=== PATIENT | male | born 1975 | race Caucasian/White ===

== ENCOUNTER 2021-12-17 15:27 | Inpatient (IN) | payer SELFPAY ==
--- NOTE | 2021-12-17 15:38 | CTR_ITS ---
PROCEDURE INFORMATION: Exam: CT Cervical Spine Without Contrast Exam date and time: 12/17/2021 4:56 PM Age: 46 years old Clinical indication: Injury or trauma; Fall; Blunt trauma; Injury details: ETOH TECHNIQUE: Imaging protocol: Computed tomography of the cervical spine without contrast. Radiation optimization: All CT scans at this facility use at least one of these dose optimization techniques: automated exposure control; mA and/or kV adjustment per patient size (includes targeted exams where dose is matched to clinical indication); or iterative reconstruction. COMPARISON: No relevant prior studies available. RADIATION DOSE METRICS: Total DLP (mGy-cm): 269.4 FINDINGS: Bones/joints: No acute fracture. Normal alignment. C2-C3: No significant disc protrusion. No severe spinal canal stenosis. No significant neural foraminal narrowing. C3-C4: No significant disc protrusion. No severe spinal canal stenosis. No significant neural foraminal narrowing. C4-C5: No significant disc protrusion. No severe spinal canal stenosis. No significant neural foraminal narrowing. C5-C6: No significant disc protrusion. No severe spinal canal stenosis. No significant neural foraminal narrowing. C6-C7: No significant disc protrusion. No severe spinal canal stenosis. No significant neural foraminal narrowing. C7-T1: No significant disc protrusion. No severe spinal canal stenosis. No significant neural foraminal narrowing. Lungs: Lung apices are normal. Soft tissues: Unremarkable. CT/CT cervical spin wo con* [id number] IMPRESSION: No acute findings.
--- NOTE | 2021-12-17 15:38 | CTR_ITS ---
PROCEDURE INFORMATION: Exam: CT Head Without Contrast Exam date and time: 12/17/2021 4:56 PM Age: 46 years old Clinical indication: Altered mental status/memory loss; Patient HX: ETOH TECHNIQUE: Imaging protocol: Computed tomography of the head without contrast. Radiation optimization: All CT scans at this facility use at least one of these dose optimization techniques: automated exposure control; mA and/or kV adjustment per patient size (includes targeted exams where dose is matched to clinical indication); or iterative reconstruction. COMPARISON: No relevant prior studies available. RADIATION DOSE METRICS: Total DLP (mGy-cm): 1232.51 FINDINGS: Brain: Normal. No hemorrhage. Unremarkable white matter. No mass effect. Cerebral ventricles: No ventriculomegaly. Paranasal sinuses: Visualized sinuses are unremarkable. No fluid levels. Mastoid air cells: Visualized mastoid air cells are well aerated. Bones/joints: Unremarkable. No acute fracture. Soft tissues: Unremarkable. CT/CT head wo con* [id number] IMPRESSION: No acute intracranial abnormality.
--- NOTE | 2021-12-17 15:43 | W.ED.ALCOHOL ---
HPI - Alcohol General: Chief Complaint: Alcohol Stated Complaint: ETOH Time Seen by Provider: 12/17/21 15:33 History of Present Illness: 46-year-old male who is brought in by EMS for altered mental status. The patient has a history of methamphetamine use as well as alcohol abuse. His woke up at 130 and found him intoxicated. He proceeded to ingest a large amount more of alcohol and then subsequently called into a knuckle strap sewer that was being dog. The patient is intoxicated and unable to provide any further history. He did vomit in the EMS unit in route. Further history from the patient's and daughter, the patient reportedly did state that he wanted to . He asked his to help kill him. He threw himself into a septic tank that there digging face first and attempt to harm himself while he was intoxicated. He does not normally drink heavily. He does have a longstanding history of methamphetamine and marijuana use but has been sober. Review of Systems Narrative: Unable to obtain review of systems due to altered mental status Physical Exam Narrative: EXAM NARRATIVE: Patient is confused and agitated, uncooperative. Abrasions on his abdomen Const: OTHER: Confused, uncooperative with exam HENMT: COMMON NORMALS: normocephalic, atraumatic and external ears normal HEAD & SCALP: normal to inspection, normocephalic and atraumatic EXTERNAL EAR: Yes external ears normal Eye: COMMON NORMALS: Equal, round and reactive pupils present and EOMs intact bilaterally PUPIL: Yes Equal, round and reactive pupils present Neck/C-Spine: COMMON NORMALS: full ROM (No cervical spine tenderness, trachea midline) Chest: OTHER: Abrasions on the lower anterior chest Resp: OTHER: Equal present bilaterally Cardio: COMMON NORMALS: regular rate and regular rhythm RATE: regular rate RHYTHM: regular rhythm GI: OTHER: Abrasions on the abdomen, no ecchymosis, abdomen nontender Back/Pelvis: OTHER: No cervical spine tenderness, no step-offs Extremity: NARRATIVE EXTREMITY EXAM: Moves all extremities symmetrically, no obvious trauma or deformity. Neuro: OTHER: Patient is confused, does follow commands, slurred speech, no obvious facial droop, pupils are equal Psych: OTHER: Patient is agitated and uncooperative, obviously intoxicated Skin: OTHER: Abrasions on the chest and abdomen Course ED course: Patient has been evaluated in the emergency department. Originally he was very agitated and uncooperative. He had an IV placed and had labs obtained. He was given Haldol 5 mg and Ativan 2 mg IV. He has slept comfortably. His initial blood alcohol was 271. He did have a CPK of 377 which is not unexpected as he has been building the septic tank at home for the past 5 days. His other laboratory studies are unremarkable. Drug screen is negative. Discussed with the family who are concerned because he voiced suicidal ideations at home, they are requesting admission if possible. X Reevaluation(s): Reevaluation #1: Repeat blood alcohol is down 191, previously 271. Patient wakes up easily. He denies suicidal ideations. He is oriented x3. Consultations: Consultation #1: Discussed with Dr. Keller, psychiatry who agrees with admission. Vital Signs: Vital signs: Vital Signs Pulse Rate 68 12/17/21 19:30 Respiratory Rate 17 12/17/21 19:30 Blood Pressure 97/76 12/17/21 19:30 Pulse Oximetry 98 12/17/21 19:30 Oxygen Delivery Me thod 12/17/21 19:30 MDM - Alcohol Medical Decision Making Patient's been sleeping after the Haldol and Ativan. CT of his head and cervical spine are unremarkable. He has been observed for about 5 hours. He wakes up and denies suicidal ideations but does admit to making suicidal statements earlier. Repeat blood alcohol is 191. Discussed with neuropsychiatry who agrees with admission. Lab Data : 12/17/21 16:44 12/17/21 16:44 Radiology Impressions Cervical Spine CT 12/17/21 15:38 IMPRESSION: No acute findings. Head CT 12/17/21 15:38 IMPRESSION: No acute intracranial abnormality. Laboratory Results WBC 4.8 10^3/uL (4.0-10.0) 12/17/21 16:44 RBC 4.22 10^6/uL (4.1-5.3) 12/17/21 16:44 Hgb 12.5 g/dL (11.7-16.6) 12/17/21 16:44 Hct 39.4 % (42.0-52.0) L 12/17/21 16:44 MCV 93.4 fl (80-94) 12/17/21 16:44 MCH 29.6 pg (28.0-34.0) 12/17/21 16:44 MCHC 31.7 g/dL (30.0-36.0) 12/17/21 16:44 RDW 13.2 % (12.1-15.1) 12/17/21 16:44 Plt Count 262 10^3/cmm (130-400) 12/17/21 16:44 MPV 9.5 fL (7.4-10.4) 12/17/21 16:44 Neut % (Auto) 63.8 % 12/17/21 16:44 Lymph % (Auto) 31.5 % 12/17/21 16:44 [place] % (Auto) 3.3 % 12/17/21 16:44 Eos % (Auto) 0.8 % 12/17/21 16:44 Baso % (Auto) 0.4 % 12/17/21 16:44 Neut # (Auto) 3.08 10^3/uL (1.8-7.7) 12/17/21 16:44 Lymph # (Auto) 1.5 10^3/uL (0.8-4.8) 12/17/21 16:44 [place] # (Auto) 0.2 10^3/uL (0.2-0.9) 12/17/21 16:44 Eos # (Auto) 0.0 10^3/uL (0.0-0.8) 12/17/21 16:44 Baso # (Auto) 0.0 10^3/uL (0.0-0.1) 12/17/21 16:44 Nucleated RBC % (auto) 0 % 12/17/21 16:44 Nucleated RBCs # 0.0 /100WBC 12/17/21 16:44 Sodium 143 mmol/L (136-145) 12/17/21 16:44 Potassium 3.8 mmol/L (3.5-5.1) 12/17/21 16:44 Chloride 109 mmol/L (98-107) H 12/17/21 16:44 Carbon Dioxide 19 mmol/L (22-29) L 12/17/21 16:44 Anion Gap 18.8 (5-19) 12/17/21 16:44 BUN 13 mg/dL (6-20) 12/17/21 16:44 Creatinine 0.7 mg/dL (0.7-1.2) 12/17/21 16:44 GFR Calculation 121.4 mL/min (90-130) 12/17/21 16:44 Glucose 152 mg/dL (65-115) H 12/17/21 16:44 Calculated Osmolality 299 mOsm/kg (285-295) H 12/17/21 16:44 Calcium 8.2 mg/dL (8.5-10.5) L 12/17/21 16:44 Total Bilirubin 0.3 mg/dL (0.15-1.2) 12/17/21 16:44 AST 27 U/L (0-40) 12/17/21 16:44 ALT 27 U/L (0-41) 12/17/21 16:44 Alkaline Phosphatase 69 U/L (40-130) 12/17/21 16:44 Creatine Kinase 377 U/L (39-308) H* 12/17/21 16:44 Total Protein 6.3 g/dL (6.6-8.7) L 12/17/21 16:44 Albumin 4.0 g/dL (3.5-5.2) 12/17/21 16:44 Globulin 2.3 g/dL (1.3-4.6) 12/17/21 16:44 Urine Color Straw (Yellow) 12/17/21 16:44 Urine Appearance Clear (CLEAR) 12/17/21 16:44 Urine pH 5 (5-7) 12/17/21 16:44 Ur Specific Richardson 1.005 (1.005-1.030) 12/17/21 16:44 Urine Protein Neg (Negative) 12/17/21 16:44 Urine Glucose (UA) Norm (Normal) 12/17/21 16:44 Urine Ketones Negative (Negative) 12/17/21 16:44 Urine Blood Neg (Negative) 12/17/21 16:44 Urine Nitrate Negative (Negative) 12/17/21 16:44 Urine Bilirubin Neg (Negative) 12/17/21 16:44 Urine Urobilinogen Norm mg/dL (Negative) 12/17/21 16:44 Ur Leukocyte Esterase Negative (Negative) 12/17/21 16:44 Salicylates < 0.3 mg/dL (3-10) L 12/17/21 16:44 Urine Opiates Screen Negative ng/mL (Negative) 12/17/21 16:44 Acetaminophen < 5.0 ug/mL (10-30) L 12/17/21 16:44 Ur Barbiturates Screen Negative ng/mL (Negative) 12/17/21 16:44 Ur Phencyclidine Scrn Negative ng/mL (Negative) 12/17/21 16:44 Ur Amphetamines Screen Negative ng/mL (Negative) 12/17/21 16:44 U Benzodiazepines Scrn Negative ng/mL (Negative) 12/17/21 16:44 Urine Cocaine Screen Negative ng/mL (Negative) 12/17/21 16:44 U Marijuana (THC) Screen Negative ng/mL (Negative) 12/17/21 16:44 Ethyl Alcohol 191 mg/dL (0-10) H 12/17/21 20:53 Discharge Plan Discharge Clinical Impression: Alcoholic intoxication, Abdominal wall abrasion, Suicidal ideations Condition: Stable Coding Level of Care Code ED Silverware Washer for Beto Fwxander History Comprehensive Exam Comprehensive Medical Decision Making Moderate Complexity
[2021-12-17 15:52] VITALS: BMI 25.8
--- NOTE | 2021-12-17 16:02 | PC.NURSE ---
Unable to take vitals at this time due to patient inability to sit still.
[2021-12-17] MEDS: haloperidol inj 5 mg/mL INJ 1 mL IVP (16:25)
[2021-12-17] MEDS: ondansetron 2 mg/ML SDV 2 mL 4 MG IVP (16:25)
[2021-12-17] MEDS: LORazepam 2 mg/mL INJ 1 mL IVP (16:25)
[2021-12-17] MEDS: sodium chloride 0.9% 1,000 ML 999 ML IV ×2 (16:26→18:52)
[2021-12-17] MEDS: tetanus-dipt-pertussis 0.5 mL SDV IM (16:27)
--- NOTE | 2021-12-17 16:39 | PC.NURSE ---
PT PLACED ON CONTINUOUS SPO2, NIBP, AND CM.
[2021-12-17 16:41] VITALS: BP 91/63; PULSE 57; RESP 12; O2SAT 92
--- NOTE | 2021-12-17 16:52 | PC.NURSE ---
INTERMITANT CATH PEFORMED PER DR. NINO ORDERS.
[2021-12-17 16:58] LABS: Add Urine Microscopic? NO; Charge for UA Resulting for Rev
[2021-12-17 17:08] LABS: Amphetamines Screen Urine Negative (Negative); Barbiturates Screen Urine Negative (Negative); Benzodiazepines Screen Urine Negative (Negative); Cocaine Screen Urine Negative (Negative); Opiate Screen Urine Negative (Negative); PCP Screen Urine Negative (Negative); THC Screen Urine Negative (Negative)
[2021-12-17 17:09] LABS: Bilirubin Urine Neg (Negative); Blood Urine Neg (Negative); Glucose Urine UA Norm (Normal); Ketones Urine Negative (Negative); Leukocyte Esterase Urine Negative (Negative); Nitrate Urine Negative (Negative); Protein Urine Neg (Negative); Specific Gravity, Urine 1.005 (1.005-1.030); Urine Appearance Clear (CLEAR); Urine Color Straw (Yellow); Urobilinogen Urine Norm (Negative); pH Urine 5 (5-7)
[2021-12-17 17:13] LABS: Basophils % 0.4 %; Eosinophils % 0.8 %; Hematocrit 39.4 % (42.0-52.0); Hemoglobin 12.5 g/dL (11.7-16.6); Lymphocytes # 1.5 10^3/uL (0.8-4.8); Lymphocytes % 31.5 %; Mean Corpuscular HGB Conc 31.7 g/dL (30.0-36.0); Mean Corpuscular Hemoglobin 29.6 pg (28.0-34.0); Mean Corpuscular Volume 93.4 fl (80-94); Mean Platelet Volume 9.5 fL (7.4-10.4); Monocytes # 0.2 10^3/uL (0.2-0.9); Monocytes % 3.3 %; Neutrophils # 3.08 10^3/uL (1.8-7.7); Neutrophils % 63.8 %; Nucleated Red Blood Cells % 0 %; Platelet Count 262 10^3/cmm (130-400); Red Blood Count 4.22 10^6/uL (4.1-5.3); Red Cell Distribution Width 13.2 % (12.1-15.1); White Blood Count 4.8 10^3/uL (4.0-10.0)
[2021-12-17 17:27] LABS: Alanine Aminotransferase 27 U/L (0-41); Alcohol Level 271 mg/dL (0-10); Alkaline Phosphatase 69 U/L (40-130); Anion Gap 18.8 (5-19); Aspartate Amino Transferase 27 U/L (0-40); Blood Urea Nitrogen 13 mg/dL (6-20); Calcium 8.2 mg/dL (8.5-10.5); Carbon Dioxide 19 mmol/L (22-29); Chloride 109 mmol/L (98-107); Globulin 2.3 g/dL (1.3-4.6); Glomerular Filtration Rate 121.4 mL/min (90-130); Glucose 152 mg/dL (65-115); Osmolality Calculated 299 mOsm/kg (285-295); Potassium 3.8 mmol/L (3.5-5.1); Sodium 143 mmol/L (136-145); Total Bilirubin 0.3 mg/dL (0.15-1.2); Total Protein 6.3 g/dL (6.6-8.7)
[2021-12-17 17:31] LABS: Acetaminophen < 5.0 ug/mL (10-30); Salicylate < 0.3 mg/dL (3-10)
[2021-12-17 17:32] LABS: Creatine Phosphokinase 377 U/L (39-308)
[2021-12-17 19:26] VITALS: O2SAT 98
[2021-12-17 19:30] VITALS: BP 97/76; PULSE 68; RESP 17; O2SAT 98
[2021-12-17 21:16] LABS: Alcohol Level 191 mg/dL (0-10)
[2021-12-17 22:16] VITALS: BP 113/77; PULSE 59; RESP 16; TEMP 37.1; O2SAT 96
[2021-12-17 22:29] VITALS: BP 109/74; PULSE 65; RESP 18; TEMP 36.3; O2SAT 100
--- NOTE | 2021-12-17 22:30 | PC.NURSE ---
46 yr.old male admitted to Room 150-1. Arrived via w/c from ED accompanied by ER staff and security. Alert and Ox2. Mood calm. Denies S/I, H/I or AVH. Denied any anxiety or depression. Stated he just had a few too many drinks today. Reports not remembering what he said. called unit and stated her does not drink very often and if so only has a few drinks. Stated he has been sober from Meth since being in rehab 5 yrs ago. States he quit smoking cigarettes and doing any drugs since he found God 5 yrs ago. Also states they just moved from [place], [place] to [place] recently and are setting up a new trailer and he has been working on septic for the past 5 days. Stated when she woke up today around 1:30 she noticed he was drinking fireball shots. Stated he drank 15 fireball shots in a short amount of time. She stated she was joking around about her not getting any sleep and he blew up at her and went outside. states at this point she could here him yelling outside stating Let me ! Stated she has not noticed him being depressed or anxious about anything so his behavior caught her off guard. She stated he had walked over to where the septic tank digging was going on and threw himself in there face first. She then called the ambulance. Patient noted to have abrasions on stomach, arm and hands from incident when doing skin assessment. No contraband found during assessment. Denied pain and stated he was just tired. Cooperative with all care. Unit rules and expectations reviewed and patient voiced understanding. Orientated to unit and room. Patient given snack and milk. Assisted to room.
[2021-12-17 22:32] VITALS: BMI 25.8
[2021-12-18 06:00] VITALS: BP 119/71; PULSE 81; RESP 18; TEMP 36.8; O2SAT 99
--- NOTE | 2021-12-18 08:34 | W.PM.NPUH&PS ---
Providers/Chief Complaint Admitting Physician: Axel Keller MD Chief Complaint: ETOH HPI NPU History of Present Illness Lang Guo is a 46 year old male who presented to the emergency department with the following report: Chief Complaint: Alcohol Stated Complaint: ETOH Time Seen by Provider: 12/17/21 15:33 History of Present Illness: 46-year-old male who is brought in by EMS for altered mental status. The patient has a history of methamphetamine use as well as alcohol abuse. His woke up at 130 and found him intoxicated. He proceeded to ingest a large amount more of alcohol and then subsequently called into a sewer line photo inspector that was being dog. The patient is intoxicated and unable to provide any further history. He did vomit in the EMS unit in route. Further history from the patient's and daughter, the patient reportedly did state that he wanted to . He asked his to help kill him. He threw himself into a septic tank that there digging face first and attempt to harm himself while he was intoxicated. He does not normally drink heavily. He does have a longstanding history of methamphetamine and marijuana use but has been sober. The patient was admitted to the neuropsychiatric unit for definitive treatment of those issues. He is not currently on psychiatric medication. He presents today reporting he had drank 8 to 10 shotsand fell down but could not remember past that. He has never been psychtrically hospitalized, has been to [facility] for outpatient services and has been on psychiatric medications but not for the past 10 to 12 years. He reports he quite cigarettes 5 years ago, reports alcohol occasionally, reports marijuana and methamphetamine in the past but quit 5 years ago and denies any other illicit drug use. He has been to [facility] for rehab after he was released from [facility]. He had a possession charge around 20 years ago. He denies currently experiencing depression or anxiety but was diagnosed with bipolar disorder and post traumatic stress disorder in the past though he had been using methamphetamine at the time. He reports his mental health issues stopped when he went to snf and has been clean since and denies having mental health issues since. He reports he had been drinking the other night and got carried away so before he knew, he was drunk and fell. His had reported to him that he said ?just let me ? during his intoxication. He denies having any issues since he has been out of [facility], bought his house with his and has been working on the house. He reports he had been overworking himself and just got carried away with drinking. Psychiatric History: As above. Substance Abuse History: As above. Family History: He reports some potential mental health issues in his sister but reports she was actively using methamphetamine at the time, addiction issues on both sides of the family, and denies suicide attempts or completions on either side of the family. Developmental History: He denies issues with his or , learned to walk and talk and met his developmental milestones on time and received speech therapy but denies emotional support, learning support or special education classes. Psychosocial History: He reports his parents were together when he was born and remained together. He has 7 siblings who are products of the same union and neither of his parents have any additional children. He described his childhood as good and denies emotional, physical or sexual abuse. The highest grade he achieved was 10th and he got his [employer]. He endorses being heterosexual with his longest relationship being 25 years. He has been once, has a children, has not been in the and endorses being shinto. His longest employment history was 3 years with [employer]. He is not currently employed. He lives in a trailer with his and child. Legal History: He has been to snf 3 times, the longest time of which was a year and a half. Medical History: He denies any known allergies to medications. He got an infection in his muscle from work. He has scrapes from his fall. Meds NPU Home Medications Medication Instructions Recorded Confirmed Last Taken Type No Known Home Medications 12/17/21 12/17/21 Unknown History Allergies Allergy/AdvReac Type Severity Reaction Status Date / Time No Known Allergies Allergy Verified 12/17/21 22:59 Mental Status Exam MSE Comments: This is a well nourished, well developed white man with hospital scrubs on and adequate grooming and eye contact. Absent dentition. No abnormal movements. Cooperative with exam in no acute distress. Speech was normal rate and volume. Mood described as great, affect is congruent. Thought process, organized. Thought content: patient denies suicidal or homicidal ideation, no delusions reported or noted and denies any auditory or visual hallucinations. Attention and concentration are intact and memory appeared reliable but none were formally tested. He is alert and oriented times three. Insight and judgment are fair. Impulse control is fair. Vitals/I&O/Wt Last Vital Signs Temp 98.2 F 12/18/21 06:00 Pulse 81 12/18/21 06:00 Resp 18 12/18/21 06:00 BP 119/71 12/18/21 06:00 Pulse Ox 99 12/18/21 06:00 O2 Del Method 12/17/21 23:00 12/17/21 12/18/21 12/18/21 23:59 06:59 14:59 Intake Total Balance Weight last 48 hrs Weight 81.647 kg Weight 81.647 kg Weight 81.647 kg Data NPU : 12/17/21 16:44 12/17/21 16:44 A&P Assessment and plan (1) Alcoholic intoxication: (2) Abdominal wall abrasion: (3) Suicidal ideations: (4) History of methamphetamine use: Plan This is a 46 year old white man with a history of methamphetamine use and genetic loading for addiction issues who presents after a recent period of intoxication reporting he could not remember most of the night and denying any mental health issues or suicidal ideation. 1. Continue current medications 2. Encourage individual, group and milieu therapy 3. Continue q-15 minute check for safety 4. Obtain collateral information from and consider discharge. Involuntary Hold Information 96 Hour Hold: 96 Hour Involuntary Admission: No Attestations NPU Medical Necessity Statement*: Inpatient hospitalization is medically necessary and the clinically appropriate intervention at this time. We will monitor medications and make changes as indicated. Patient will be in the hospital for over two midnights. Likely length of stay is one to three days. However he is a voluntary and if collateral information pans out any desires to discharge we will allow him to go later today. Coding Level of Care Code Acute Wide Area Network Systems Administrator for Beto Fwd Diagnoses Alcoholic intoxication F10.929 Abdominal wall abrasion S30.811A Suicidal ideations R45.851 History of methamphetamine use F15.91
[2021-12-18 14:00] VITALS: BP 111/69; PULSE 72; RESP 16; TEMP 36.6; O2SAT 97
--- NOTE | 2021-12-18 17:56 | P.NPUDS_ITS ---
Reason for Visit Reason for Visit: ETOH Brief History: History of Present Illness Lang Guo is a 46 year old male who presented to the emergency department with the following report: Chief Complaint: Alcohol Stated Complaint: ETOH Time Seen by Provider: 12/17/21 15:33 History of Present Illness:?? 46-year-old male who is brought in by EMS for altered mental status.? The patient has a history of methamphetamine use as well as alcohol abuse.? His woke up at 130 and found him intoxicated.? He proceeded to ingest a large amount more of alcohol and then subsequently called into a soil science technical officer that was being dog.? The patient is intoxicated and unable to provide any further history.? He did vomit in the EMS unit in route. Further history from the patient's and daughter, the patient reportedly did state that he wanted to .? He asked his to help kill him.? He threw himself into a septic tank that there digging face first and attempt to harm himself while he was intoxicated.? He does not normally drink heavily.? He does have a longstanding history of methamphetamine and marijuana use but has been sober. The patient was admitted to the neuropsychiatric unit for definitive treatment of those issues. He is not currently on psychiatric medication. He presents today reporting he had drank 8 to 10 shotsand fell down but could not remember past that. He has never been psychtrically hospitalized, has been to [facility] for outpatient services and has been on psychiatric medications but not for the past 10 to 12 years. He reports he quite cigarettes 5 years ago, reports alcohol occasionally, reports marijuana and methamphetamine in the past but quit 5 years ago and denies any other illicit drug use. He has been to [facility] for rehab after he was released from half-way. He had a possession charge around 20 years ago. He denies currently experiencing depression or anxiety but was diagnosed with bipolar disorder and post traumatic stress disorder in the past though he had been using methamphetamine at the time. He reports his mental health issues stopped when he went to group home and has been clean since and denies having mental health issues since. He reports he had been drinking the other night and got carried away so before he knew, he was drunk and fell. His had reported to him that he said ?just let me ? during his intoxication. He denies having any issues since he has been out of half-way, bought his house with his and has been working on the house. He reports he had been overworking himself and just got carried away with drinking. Psychiatric History: As above. Substance Abuse History: As above. Family History: He reports some potential mental health issues in his sister but reports she was actively using methamphetamine at the time, addiction issues on both sides of the family, and denies suicide attempts or completions on either side of the family. Developmental History: He denies issues with his or , learned to walk and talk and met his developmental milestones on time and received speech therapy but denies emotional support, learning support or special education classes. Psychosocial History: He reports his parents were together when he was born and remained together. He has 7 siblings who are products of the same union and neither of his parents have any additional children. He described his childhood as good and denies emotional, physical or sexual abuse. The highest grade he achieved was 10th and he got his [employer]. He endorses being heterosexual with his longest relationship being 25 years. He has been once, has a children, has not been in the and endorses being baptist. His longest employment history was 3 years with [employer]. He is not currently employed. He lives in a trailer with his and child. Legal History: He has been to group home 3 times, the longest time of which was a year and a half. Medical History: He denies any known allergies to medications. He got an infection in his muscle from work. He has scrapes from his fall. Hospital Course Hospital Course He quickly acclimated to the individual, group and milieu therapies.? He presented reporting that he has been doing well and simply got intoxicated and fell into a ditch. He denied any need for ongoing interventions. He did not have any demonstrable concerns. He had significant improvement from his intoxicated presentation and was accepting of referrals to [facility]. He was able to contract for safety outside of the hospital prior to discharge.? During the hospitalization, patient had routine laboratory studies which were within normal limits except for few outliers.? Additionally there was a general medical evaluation which was also within normal limits and revealed no new acute processes. Discharge Summary: At the time of discharge, he denied psychosis or lethality.? Mood and anxiety were well managed.? Patient endorsed a plan to avoid all drugs of abuse and follow-up with the aftercare recommendations of the treatment team.? Patient was evaluated and deemed to be absent credible lethality, and had achieved the maximum benefit from an inpatient hospitalization, so was discharged. Involuntary Hold Information 96 Hour Hold: 96 Hour Involuntary Admission: No Mental Status Exam MSE Comments: This is a well nourished, well developed white man with hospital scrubs on and adequate grooming and eye contact. Absent dentition. No abnormal movements. Cooperative with exam in no acute distress. Speech was normal rate and volume. Mood described as great, affect is congruent. Thought process, organized. Thought content: patient denies suicidal or homicidal ideation, no delusions reported or noted and denies any auditory or visual hallucinations. Attention and concentration are intact and memory appeared reliable but none were formally tested. He is alert and oriented times three. Insight and judgment are fair. Impulse control is fair. Discharge Data Studies Completed and Pending: Completed Studies During Hospitalization Category Date Time Status CT cervical spin wo con* [id number] Stat Cat Scan 12/17/21 15:[address] head wo con* [id number] Stat Cat Scan 12/17/21 15:38 Completed Radiology Impressions Cervical Spine CT 12/17/21 15:38 IMPRESSION: No acute findings. Head CT 12/17/21 15:38 IMPRESSION: No acute intracranial abnormality. Laboratory Results WBC 4.8 10^3/uL (4.0- 10.0) 12/17/21 16:44 RBC 4.22 10^6/uL (4.1 -5.3) 12/17/21 16:44 Hgb 12.5 g/dL (11.7-1 6.6) 12/17/21 16:44 Hct 39.4 % (42.0-52.0 ) L 12/17/21 16:44 MCV 93.4 fl (80-94) 12/17/21 16:44 MCH 29.6 pg (28.0-34. 0) 12/17/21 16:44 MCHC 31.7 g/dL (30.0-3 6.0) 12/17/21 16:44 RDW 13.2 % (12.1-15.1 ) 12/17/21 16:44 Plt Count 262 10^3/cmm (130 -400) 12/17/21 16:44 MPV 9.5 fL (7.4-10.4) 12/17/21 16:44 Neut % (Auto) 63.8 % 12/17/21 16:44 Lymph % (Auto) 31.5 % 12/17/21 16:44 Real % (Auto) 3.3 % 12/17/21 16:44 Eos % (Auto) 0.8 % 12/17/21 16:44 Baso % (Auto) 0.4 % 12/17/21 16:44 Neut # (Auto) 3.08 10^3/uL (1.8 -7.7) 12/17/21 16:44 Lymph # (Auto) 1.5 10^3/uL (0.8- 4.8) 12/17/21 16:44 Real # (Auto) 0.2 10^3/uL (0.2- 0.9) 12/17/21 16:44 Eos # (Auto) 0.0 10^3/uL (0.0- 0.8) 12/17/21 16:44 Baso # (Auto) 0.0 10^3/uL (0.0- 0.1) 12/17/21 16:44 Nucleated RBC % (a uto) 0 % 12/17/21 16:44 Nucleated RBCs # 0.0 /100WBC 12/17/21 16:44 Sodium 143 mmol/L (136-1 45) 12/17/21 16:44 Potassium 3.8 mmol/L (3.5-5 .1) 12/17/21 16:44 Chloride 109 mmol/L (98-10 7) H 12/17/21 16:44 Carbon Dioxide 19 mmol/L (22-29) L 12/17/21 16:44 Anion Gap 18.8 (5-19) 12/17/21 16:44 BUN 13 mg/dL (6-20) 12/17/21 16:44 Creatinine 0.7 mg/dL (0.7-1. 2) 12/17/21 16:44 GFR Calculation 121.4 mL/min (90- 130) 12/17/21 16:44 Glucose 152 mg/dL (65-115 ) H 12/17/21 16:44 Calculated Osmolal ity 299 mOsm/kg (285- 295) H 12/17/21 16:44 Calcium 8.2 mg/dL (8.5-10 .5) L 12/17/21 16:44 Total Bilirubin 0.3 mg/dL (0.15-1 .2) 12/17/21 16:44 AST 27 U/L (0-40) 12/17/21 16:44 ALT 27 U/L (0-41) 12/17/21 16:44 Alkaline Phosphata se 69 U/L (40-130) 12/17/21 16:44 Creatine Kinase 377 U/L (39-308) H* 12/17/21 16:44 Total Protein 6.3 g/dL (6.6-8.7 ) L 12/17/21 16:44 Albumin 4.0 g/dL (3.5-5.2 ) 12/17/21 16:44 Globulin 2.3 g/dL (1.3-4.6 ) 12/17/21 16:44 Urine Color Straw (Yellow) 12/17/21 16:44 Urine Appearance Clear (CLEAR) 12/17/21 16:44 Urine pH 5 (5-7) 12/17/21 16:44 Ur Specific Gravit y 1.005 (1.005-1.0 30) 12/17/21 16:44 Urine Protein Neg (Negative) 12/17/21 16:44 Urine Glucose (UA) Norm (Normal) 12/17/21 16:44 Urine Ketones Negative (Negati ve) 12/17/21 16:44 Urine Blood Neg (Negative) 12/17/21 16:44 Urine Nitrate Negative (Negati ve) 12/17/21 16:44 Urine Bilirubin Neg (Negative) 12/17/21 16:44 Urine Urobilinogen Norm mg/dL (Negat burke) 12/17/21 16:44 Ur Leukocyte Desiree ase Negative (Negati ve) 12/17/21 16:44 Salicylates < 0.3 mg/dL (3-10 ) L 12/17/21 16:44 Urine Opiates Scre en Negative ng/mL (N egative) 12/17/21 16:44 Acetaminophen < 5.0 ug/mL (10-3 0) L 12/17/21 16:44 Ur Barbiturates Sc reen Negative ng/mL (N egative) 12/17/21 16:44 Ur Phencyclidine S crn Negative ng/mL (N egative) 12/17/21 16:44 Ur Amphetamines Sc reen Negative ng/mL (N egative) 12/17/21 16:44 U Benzodiazepines Scrn Negative ng/mL (N egative) 12/17/21 16:44 Urine Cocaine Scre en Negative ng/mL (N egative) 12/17/21 16:44 U Marijuana (THC) Screen Negative ng/mL (N egative) 12/17/21 16:44 Ethyl Alcohol 191 mg/dL (0-10) H 12/17/21 20:53 Vitals: Last Vital Signs Temp 97.9 F 12/18/21 14:00 Pulse 72 12/18/21 14:00 Resp 16 12/18/21 14:00 BP 111/69 12/18/21 14:00 Pulse Ox 97 12/18/21 14:00 O2 Del Method 12/17/21 23:00 Discharge Plan Discharge Patient Disposition: Home Condition: Stable Prescriptions: No Action No Known Home Medications Discharge Orders: Discharge Order (Routine); Ordered 12/18/21 Ordered By: Axel Keller Referrals: [facility] [Provider Group] (WALK IN ASSESSMENTS DONE SUNDAY-SUNDAY, 7:30AM - 2 PM, FIRST COME FIRST SERVE, BRING ID, CURRENT INSURANCE CARD, LIST OF ANY MEDICATIONS....) Discharge Diet: Regular Discharge Activity: Resume usual activity Patient Instructions: Abuse of Alcohol (DC), Opioid Safety Discharge Attestations NPU Time Spent in Discharge Care*: greater than 30 min Specific Discharge Activities: Specific discharge activities: educating patient, discussing with piano case and bench assembler/social workers/dc planners, documenting/other paperwork and evaluating patient/reviewing data Coding Level of Care Code Acute Chg FW DC note
[2021-12-18 18:00] VITALS: BP 111/69; PULSE 72; RESP 16; TEMP 36.6; O2SAT 97
--- NOTE | 2021-12-19 07:56 | PC.OT ---
OT EVALUATION ORDERS RECEIVED. PATIENT DISCHARGED BEFORE EVALUATION COULD BE COMPLETED.
== END 2021-12-18 18:22 | disposition home or self-care (01) | DRG 897 ==
LOC: ER 21:26 → NP 21:54
PROVIDERS: Admitting Provider Psychiatry & Neurology Psychiatry; Emergency Provider Emergency Medicine; Visit Provider Psychiatry & Neurology Psychiatry
DX: F10.129 Alcohol abuse with intoxication, unspecified (principal); R45.851 Suicidal ideations; Y90.8 Blood alcohol level of 240 mg/100 ml or more; F15.91 Other stimulant use, unspecified, in remission; F12.91 Cannabis use, unspecified, in remission; Z87.891 Personal history of nicotine dependence
CPT/HCPCS: 70450; 72125; 80053; 80306; 80307; 81003; 82550; 85025; 90471; 90715; 96372; 99285; J1630; J2060; J2405; J3411; J7030

== ENCOUNTER → 2022-09-07 11:45 | Outpatient (BNVA) | payer MEDICAID, SELFPAY | PROVIDERS: Visit Provider Internal Medicine Cardiovascular Disease | DX: Z79.899 Other long term (current) drug therapy (principal); R00.1 Bradycardia, unspecified | CPT/HCPCS: 80053; 80061; 80306; 83036; 93005 ==

== ENCOUNTER → 2023-03-22 14:32 | Outpatient (BNVA) | payer OTHER, SELFPAY ==
[2023-01-11 16:30] VITALS: BP 127/84; BMI 27.9
== END ==
PROVIDERS: Visit Provider Nurse Practitioner Psychiatric/Mental Health
DX: Z79.899 Other long term (current) drug therapy (principal)
CPT/HCPCS: 80053; 80164